=== PATIENT | female | born 1960 | race Caucasian/White ===

== ENCOUNTER 2020-04-14 20:03 | Inpatient (IN) | payer BC ==
[~2020-04-14 20:03] MED LIST: Iopamidol-370 76% 500 ML 1 ML ONE
--- NOTE | 2020-04-14 20:54 | RAD ---
EXAM: CHEST ONE VIEW HISTORY: Covid positive, hypoxia. COMPARISON: None FINDINGS: Postoperative changes related to CABG are noted. Pulmonary vasculature is within normal limits. Calci fied granulomata are seen at each lung base related to prior granulomatous disease. Linear density is seen in the left lung base which may represent mild scarring or atelectasis. Lungs are otherwise c lear. Vascular calcifications overlie the region of the subclavian and axillary vessels. Vascular calcifications are seen in the thoracic aorta. Mild degenerative changes are noted in the spine. IMPRESSION: No acute cardiopulmonary process. Chest radiographs exhibit low sensitivity for evaluation of subtle groundglass opacities which can be seen with viral bronchopneumonia.
[2020-04-14 20:55] LABS: Hemoglobin 15.6 g/dL (12.0-16.0); Mean Corpuscular HGB CONC 32.7 g/dL (32.0-36.0); Mean Corpuscular Hemoglobin 34.5 pg (27.0-31.0); Mean Platelet Volume 7.8 fL (7.4-10.4); Platelet Count 149 thou/uL (130-400); RBC Distribution Width 13.2 % (11.5-14.5); Red Blood Cell (RBC) Count 4.52 mill/uL (4.20-5.40); White Blood Cell (WBC) Count 3.2 thou/uL (4.8-10.8)
[2020-04-14 21:08] LABS: Albumin 3.7 g/dL (3.4-4.8); Anion Gap 14 mmol/L (10-20); BUN (Urea Nitrogen) 7 mg/dL (9.8-20.1); Bilirubin, Total 0.2 mg/dL (0.2-1.2); Calc. Creatinine Clearance 0 mL/min (70-130); Calcium 8.4 mg/dL (7.8-10.44); Carbon Dioxide 29 mmol/L (23-31); Chloride 98 mmol/L (98-107); Estimated GFR-MDRD 76; Glucose 102 mg/dL (80-115); Potassium 3.2 mmol/L (3.5-5.1); Protein, Total 6.5 g/dL (6.0-8.3); Sodium 138 mmol/L (136-145)
[2020-04-14 21:09] LABS: ALT (SGPT) 9 U/L (8-55); AST (SGOT) 25 U/L (5-34); Alkaline Phosphatase 123 U/L (40-110); Globulin 2.8 g/dL (2.4-3.5)
[2020-04-14 21:21] LABS: #Basophils 0.1 thou/uL (0.0-0.2); #Lymphocytes 1.2 thou/uL (1.20-3.40); #Monocytes 0.3 thou/uL (0.11-0.59); #Neutrophils 1.6 thou/uL (1.40-6.50); %Basophils 2.9 % (0.0-1.0); %Eosinophils 0.1 % (0.0-10.0); %Lymphocytes 38.3 % (21.0-51.0); %Monocytes 8.1 % (0.0-10.0); %Neutrophils 50.7 % (42.0-75.0)
[2020-04-14 21:30] LABS: CKMB 1.5 ng/mL (0-6.6)
[2020-04-14] MEDS ORDERED: Dexamethasone 10 MG/ML VIAL ONE (21:36)
[2020-04-14] MEDS ORDERED: Aspirin Chewable 81 MG TAB ONE (21:48)
--- NOTE | 2020-04-14 21:55 | PDOC.FPRHP ---
- History of Present Illness Chief Complaint: hypoxia History of Present Illness: 60 yo F with history of CABG presenting for hypoxia with outside COVID positive test yesterday and known exposure in her father who was briefly hospitalized last night. Patient is on day 3 of symptoms and reports increased fatigue, dyspnea on exertion and a chronic cough for which she has used an inhaler in the past. She denies any fever, chest pain, or decreased oral intake. Patient was found to be hypoxic at home with O2 sat 88-89%. ED Course: Received aspirin and decadron - Allergies/Adverse Reactions Allergies Allergy/AdvReac Type Severity Reaction Status Date / Time Sulfa (Sulfonamide Allergy Verified 04/14/20 23:38 Antibiotics) - Home Medications Medication Instructions Recorded Confirmed Type Atorvastatin Calcium [Lipitor] 40 mg PO DAILY 04/15/20 04/15/20 History BuPROPion XL [Wellbutrin XL] 1 tab PO DAILY 04/15/20 04/15/20 History Diazepam [Valium] 10 mg PO HS 04/15/20 04/15/20 History Gabapentin 600 mg PO TID 04/15/20 04/15/20 History Hydrocodone Bit/Acetaminophen 1 tablet PO Q6HR PRN 04/15/20 04/15/20 History [HYDROcodone Bit/Acetaminophen] Metoprolol Tartrate [Lopressor] 25 mg PO BID 04/15/20 04/15/20 History QUEtiapine Fumarate [SEROquel] 400 mg PO BID 04/15/20 04/15/20 History Ventolin HFA Inhaler 2 puff INH Q6HR PRN 04/15/20 04/15/20 History - History PMHx: CAD PSHx: CABG, back surgery FHx: Non-contributory Social: 1 PPD for 30 years, current nonsmoker, Denies alcohol or drug use - Review of Systems General: denies: fever/chills Respiratory: reports: cough. denies: shortness of breath Cardiovascular: denies: chest pain Gastrointestinal: reports: diarrhea, abdominal pain. denies: nausea, vomiting Skin: denies: rashes Musculoskeletal: denies: pain, tenderness Neurological: reports: weakness - Vital signs BP: 118/68 HR: 77 RR: 16 Tmax: 98.2 Pox: 94% on 2L Wt: 71kg - Physical Exam Constitutional: NAD HEENT: normocephalic and atraumatic, EOMI, no scleral icterus, grossly normal vision, grossly normal hearing Neck: FROM Heart: RRR, no murmurs/rubs/gallops -Lungs: wheezing bilaterally Abdomen: soft, non-tender Musculoskeletal: normal structure, ROM grossly normal Neurological: no focal deficit Skin: no jaundice Heme/Lymphatic: no unusual bruising or bleeding Psychiatric: normal mood and affect, good judgment and insight, intact recent and remote memory FMR H&P: Results - Labs Result Diagrams: 04/15/20 04:17 04/15/20 04:17 Lab results: WBC 3.2 thou/uL (4.8-10.8) L 04/14/20 20:36 Hgb 15.6 g/dL (12.0-16.0) 04/14/20 20:36 Hct 47.7 % (36.0-47.0) H 04/14/20 20:36 MCV 105.0 fL (78.0-98.0) H 04/14/20 20:36 Plt Count 149 thou/uL (130-400) 04/14/20 20:36 Neutrophils % 50.7 % (42.0-75.0) 04/14/20 20:36 Sodium 138 mmol/L (136-145) 04/14/20 20:36 Potassium 3.2 mmol/L (3.5-5.1) L 04/14/20 20:36 Chloride 98 mmol/L (98-107) 04/14/20 20:36 Carbon Dioxide 29 mmol/L (23-31) 04/14/20 20:36 BUN 7 mg/dL (9.8-20.1) L 04/14/20 20:36 Creatinine 0.77 mg/dL (0.6-1.1) 04/14/20 20:36 Glucose 102 mg/dL (80-115) 04/14/20 20:36 Lactic Acid 1.0 mmol/L (0.5-2.2) 04/14/20 20:36 Calcium 8.4 mg/dL (7.8-10.44) 04/14/20 20:36 Total Bilirubin 0.2 mg/dL (0.2-1.2) 04/14/20 20:36 AST 25 U/L (5-34) 04/14/20 20:36 ALT 9 U/L (8-55) 04/14/20 20:36 Alkaline Phosphatase 123 U/L (40-110) H 04/14/20 20:36 CK-MB (CK-2) 1.5 ng/mL (0-6.6) 04/14/20 20:36 Serum Total Protein 6.5 g/dL (6.0-8.3) 04/14/20 20:36 Albumin 3.7 g/dL (3.4-4.8) 04/14/20 20:36 - EKG Interpretation EKG: no ST elevation - Radiology Interpretation Chest x-ray Status: report reviewed by me (no acute process) FMR H&P: A/P - Plan 60 yo F with history of CABG presenting for hypoxia with outside positive COVID Acute Hypoxic Respiratory Failure 2/2 COVID pneumonia -O2 88% on presentation, improved to 95% on 2L -outside positive COVID and known exposure -Mg, Phos, D-dimer, CRP, INR, PTT, fibrinogen, ferritin, LDH pending -Urine antigens pending -BCx pending -started decadron and BID lovenox -COVID at this hospital is pending. Will start convalescent plasma and remde sivir when resulted. Elevated troponin -trop 0.05 -EKG showed no signs of ST elevation -may be related to covid but patient has history of CAD and CABG -will trend Hypokalemia -K 3.2 -replace CAD -history of CABG -Continue home meds DVT PPx: lovenox PCP: CC - out of town Code: FULL Dispo: Admit for treatment of covid pneumonia with oxygen requirement. Will treat covid and provide supportive care. Trend troponins. FMR H&P: Upper Level - Plan Date/Time: 04/14/202147 Tony Carbajal DO, have evaluated this patient and agree with findings/plan as outlined by legal summer intern resident. Pertinent changes/additions are listed here. 60 yo F w pmhx sig for CAD she has had increased malaise for 3 days, mild GALLEGOS, chronic cough. postive covid test at outside faciltiy, with known exposure. she denies fever, chest pain, or wheeze. has used an inhaler in the past and has >30py smoking hx. In the ED she had hypoxia to 88%. elevated trop, ekg neg for st changes. cxr and labs wnl. given asa and decadron. on my exam she has wheezing b/l, no obvious murmur, abd nttp, no IRWIN. covid pna with acute hypoxic resp failure, stable on 2L. continue O2 support, decadron, covid test pending, add convalescent plasma and remdesivir when positive. elevated trop 2/2 covid vs demand, continue to trend. will provid inhalers for likely dx of copd. adm to tele for monitoring. Addendum - Attending - Attending Attestation Date/Time: 04/15/20 0037 I personally evaluated the patient and discussed the management with Dr. Knight/Niall. I agree with the History, Examination, Assessment and Plan documented above with any addition or exceptions noted below. 60 yo WF PMH CAD s/p CABG. Presents with fever/chill, diarrhea, and SOB x 2-3 da ys. Tested positive for COVID 19 today at outside facility. Several family members with covid. Exam remarkble for hypoxia on RA. Admit inpatient for hypoxic respiratory distress 2/2 covid 19 PNA. Patient would like convelescant plasma so repeat COVID swab here. Consider remdesivir. Continue decadron and supplemetal O2. Inpt, tele, >2 midnights. Trend trop.
[2020-04-14] MEDS ORDERED: Acetaminophen 325 MG TAB PO PRN (22:06)
[2020-04-14] MEDS ORDERED: Acetaminophen 650 MG Suppository PR PRN (22:06)
[2020-04-14] MEDS ORDERED: Ondansetron ODT 4 MG TAB PO PRN (22:06)
[2020-04-14 22:55] LABS: PTT 29.9 sec (22.9-36.1)
[2020-04-14 23:04] LABS: CRP (Inflammatory) 2.45 mg/dL (= or < 0.5); Magnesium 1.9 mg/dL (1.6-2.6); Phosphorus 3.8 mg/dL (2.3-4.7)
[2020-04-15 00:05] LABS: Troponin I 0.046 ng/mL (< 0.028)
[2020-04-15] MEDS ORDERED: Potassium Chloride 20 MEQ TAB PO SCH (00:15)
[2020-04-15 00:24] VITALS: BMI 27.8
[2020-04-15] MEDS ORDERED: Diazepam 5 MG TAB PO SCH ×2 (02:00→21:00)
[2020-04-15 04:35] LABS: #Lymphocytes 0.5 thou/uL (1.20-3.40); #Monocytes 0.1 thou/uL (0.11-0.59); #Neutrophils 1.3 thou/uL (1.40-6.50); %Basophils 1.4 % (0.0-1.0); %Eosinophils 0.2 % (0.0-10.0); %Lymphocytes 23.8 % (21.0-51.0); %Monocytes 4.8 % (0.0-10.0); %Neutrophils 69.9 % (42.0-75.0); Hemoglobin 15.3 g/dL (12.0-16.0); Mean Corpuscular HGB CONC 32.8 g/dL (32.0-36.0); Mean Corpuscular Hemoglobin 34.9 pg (27.0-31.0); Mean Platelet Volume 7.9 fL (7.4-10.4); Platelet Count 145 thou/uL (130-400); RBC Distribution Width 13.1 % (11.5-14.5); Red Blood Cell (RBC) Count 4.38 mill/uL (4.20-5.40); White Blood Cell (WBC) Count 1.9 thou/uL (4.8-10.8)
[2020-04-15 04:54] LABS: Anion Gap 12 mmol/L (10-20); BUN (Urea Nitrogen) 8 mg/dL (9.8-20.1); CRP (Inflammatory) 2.42 mg/dL (= or < 0.5); Calc. Creatinine Clearance 92 mL/min (70-130); Calcium 8.4 mg/dL (7.8-10.44); Carbon Dioxide 32 mmol/L (23-31); Chloride 98 mmol/L (98-107); Estimated GFR-MDRD 82; Glucose 123 mg/dL (80-115); Magnesium 2.2 mg/dL (1.6-2.6); Sodium 138 mmol/L (136-145)
[2020-04-15 04:56] LABS: Troponin I 0.046 ng/mL (< 0.028)
[2020-04-15 05:03] LABS: Legionella Urinary Ag Negative (Negative); Strep pneumo Urine Ag NEGATIVE (NEGATIVE)
--- NOTE | 2020-04-15 05:46 | PDOC.FM ---
- Subjective Subjective: Patient doing okay this morning. Reports she has had diarrhea daily since 04/12. Endorses frequent episodes of sweating intermittently with chills. Her father was recently admitted to our team and discharged yesterday. She states that her bean weigher is out of town but she has an appt kwaku for f/u soon. - Objective Vital Signs & Weight: Vital Signs (12 hours) Temp Pulse Resp BP Pulse Ox 04/15/20 05:09 93 L 04/15/20 04:28 97.7 F 75 20 111/78 93 L 04/15/20 00:23 97.9 F 70 20 107/64 94 L Weight Weight 71.169 kg I&O: 04/13/20 04/14/20 04/15/20 06:59 06:59 06:59 Intake Total 240 Output Total 300 Balance -60 Result Diagrams: 04/15/20 04:17 04/15/20 04:17 Phys Exam - Physical Examination Constitutional: NAD HEENT: moist MMs, sclera anicteric Neck: supple, full ROM Respiratory: no wheezing, clear to auscultation bilateral Cardiovascular: RRR, no significant murmur Gastrointestinal: soft, positive bowel sounds Musculoskeletal: no edema, pulses present Neurological: non-focal, moves all 4 limbs Psychiatric: normal affect Skin: no rash Dx/Plan (1) Pneumonia due to COVID-19 virus Code(s): U07.1 - COVID-19; J12.89 - OTHER VIRAL PNEUMONIA Status: Acute (2) Acute respiratory failure with hypoxia Code(s): J96.01 - ACUTE RESPIRATORY FAILURE WITH HYPOXIA Status: Acute (3) Elevated troponin Code(s): R77.8 - OTHER SPECIFIED ABNORMALITIES OF PLASMA PROTEINS Status: Acute - Plan Plan: 60 yo F with history of CABG presenting for hypoxia with outside positive COVID #Acute Hypoxic Respiratory Failure 2/2 COVID pneumonia -O2 88% on presentation, improved to 95% on 2L; has been satting well on 2L overnight -outside positive COVID and known exposure, repeat pending; symptoms since approx 04/12 -COVID labs positive -Urine antigens negative -BCx pending -continue decadron and BID lovenox -Start convalescent plasma and possibly remdesivir when COVID test resulted. #Elevated troponin -trop 0.05>0.0.46>0.046 -EKG showed no signs of ST elevation -may be related to covid but patient has history of CAD and CABG -patient denies any chest pain #Hypokalemia, resolved -K 3.2>4.0 #CAD -history of CABG -Continue home meds DVT PPx: lovenox PCP: CC - out of town Code: FULL Dispo: Admitted for treatment of covid pneumonia with oxygen requirement. Continue respiratory support Addendum - Attending - Attending Attestation Date/Time: 04/15/20 [id number] I personally evaluated the patient and discussed the management with Dr. Ceron I agree with the History, Examination, Assessment and Plan documented above with any addition or exceptions noted below - Patient feeling better. Afebrile VSS. A/P: 1) COVID pneumonia- mild O2 requirement; wean as tolerated. Will plan to give plasma and consider remdesivir. Continue decadron. Inflammatory markers mildly elevated. Possible d/c today or tomorrow.
--- NOTE | 2020-04-15 08:18 | CT ---
PRELIMINARY REPORT/[facility]/EMERGENCY AFTER HOURS PROCEDURE: EXAM: CTA Chest with Intravenous Contrast CLINICAL HISTORY: F60, COVID POSTIVE, ELEVATED D-DIMER. EVAL FOR PE. TECHNIQUE: Axial CTA images of the chest with intravenous contrast. Three-dimensional MIP/volume rend ered reformations were performed. CONTRAST: With; ISOVUE 370,100mL COMPARISON: None provided. FINDINGS: PULMONARY ARTERIES There is no intraluminal filling defect suspicious for PE. AORTA No thoracic aortic aneurysm or dissection. LUNGS Emphysema with basilar predominant interstitial opacities. Subpleural opacities in the inferior aspe ct of the right upper lobe and right lower lobe. No pulmonary mass. No focal airspace consolidation. PLEURAL SPACES No pleural effusion. No pneumothorax. HEART AND MEDIASTINUM No cardiomegaly. No significant pericardial effusion. Coronary artery atherosclerotic disease to inc lude the aorta and peripheral branching vessels. Post CABG changes. LYMPH NODES No lymphadenopathy. BONES No focal osseous abnormality or acute fracture. Compression deformity of L1 vertebral body. Moderat e multilevel degenerative changes CHEST WALL AND UPPER ABDOMEN Images through the upper abdomen are unremarkable. The chest wall is unremarkable. IMPRESSION: 1. No acute pulmonary thromboembolism. 2. Subpleural groundglass opacities in the inferior aspect of the right upper lobe and right lower l obe may represent atelectasis or developing infection. 3. Post CABG changes. Suggestion of mild pulmonary interstitial edema. ELECTRONICALLY SIGNED BY: Alexandru Pérez DO Apr 15, 2020 12:29:41 AM ALIGNMENT MECHANIC This report is intended for review by the ordering physician only, in accordance of law. If you recei ve this report in error, please call [facility] at [phone]. FINAL REPORT CT ANGIO OF CHEST PERFORMED WITH IV CONTRAST ENHANCEMENT WITH 3D RECONSTRUCTIONS: HISTORY: COVID-positive. Elevated D-Dimer. Shortness of breath. FINDINGS: Lungs show changes of severe centrilobular emphysema in the upper lobes. Within the lung bases, there are subpleural reticular and some subtle ground-glass change. Appearance is more suggestive of atele ctasis not typical for COVID pneumonia. No pleural effusion. No significant mediastinal or hilar lymphadenopathy. No significant axillary adenopathy. Thoracic aor ta is normal in caliber. There is good pulmonary artery opacification. No CT evidence for pulmonary embolus. Visualized liver parenchyma shows no focal findings. IMPRESSION: 1. No CT evidence for pulmonary embolus. 2. Emphysematous lung changes with bibasilar more interstitial changes suggesting atelectasis or sca rring, less likely pneumonia. Report in agreement with the preliminary report issued by [facility]. POS: DANIEL
[2020-04-15] MEDS: Atorvastatin Calcium 40 MG TAB PO SCH (08:32)
[2020-04-15] MEDS: Bupropion 150 MG XL TAB PO SCH (08:32)
[2020-04-15] MEDS: Metoprolol Tartrate 25 MG TAB PO SCH ×2 (08:33→20:41)
[2020-04-15] MEDS: Enoxaparin Sodium 40 MG/0.4 ML SYRINGE SC SCH ×2 (08:33→20:41)
[2020-04-15] MEDS: Dexamethasone 4 mg/ml Vial SLOW IVP SCH (08:33)
[2020-04-15] MEDS: Albuterol 200 PUFF (6.7GM INHALER) INH SCH ×3 (08:34→20:41)
[2020-04-15] MEDS ORDERED: Gabapentin 300 MG CAP PO SCH (09:00)
[2020-04-15] MEDS ORDERED: Dexamethasone 4 mg/ml Vial SLOW IVP SCH (09:00)
[2020-04-15] MEDS: Ondansetron PF 4 MG/2 ML Vial IVP PRN ×2 (10:24→20:59)
[2020-04-15] MEDS: HYDROcodone/Acetaminophen 10/325 mg Tablet PO PRN ×2 (11:57→17:35)
[2020-04-15] MEDS: Gabapentin 300 MG CAP PO SCH ×2 (15:26→20:40)
[2020-04-15 15:36] LABS: SARS-CoV-2 MS2 Positive; SARS-CoV-2 N Gene Positive; SARS-CoV-2 S Gene Positive; SARS-CoV-2 by NAA DETECTED (NotDetected); SARS-CoV-2 orf1ab Positive
[2020-04-15] MEDS ORDERED: REMDESIVIR (EUA) 200 MG in Sodium Chloride 0.9% 250 ML 210 ML IV SCH (17:15)
[2020-04-15] MEDS: Famotidine 20 MG TAB PO SCH (20:40)
[2020-04-16] MEDS: Albuterol 200 PUFF (6.7GM INHALER) INH SCH ×3 (02:44→12:05)
[2020-04-16 05:18] LABS: ALT (SGPT) 11 U/L (8-55); AST (SGOT) 22 U/L (5-34); Albumin 3.3 g/dL (3.4-4.8); Alkaline Phosphatase 90 U/L (40-110); Bilirubin, Direct 0.1 mg/dL (0.1-0.3); Bilirubin, Total 0.2 mg/dL (0.2-1.2)
[2020-04-16] MEDS: Dexamethasone 4 mg/ml Vial SLOW IVP SCH (07:45)
[2020-04-16] MEDS: Enoxaparin Sodium 40 MG/0.4 ML SYRINGE SC SCH (07:45)
[2020-04-16] MEDS: Gabapentin 300 MG CAP PO SCH ×2 (07:45→15:22)
[2020-04-16] MEDS: Metoprolol Tartrate 25 MG TAB PO SCH (07:46)
[2020-04-16] MEDS: Atorvastatin Calcium 40 MG TAB PO SCH (07:46)
[2020-04-16] MEDS: Famotidine 20 MG TAB PO SCH (07:46)
[2020-04-16] MEDS: Bupropion 150 MG XL TAB PO SCH (07:46)
[2020-04-16] MEDS: HYDROcodone/Acetaminophen 10/325 mg Tablet PO PRN ×2 (08:05→15:22)
--- NOTE | 2020-04-16 08:54 | PDOC.FM ---
- Subjective Subjective: Patient's breathing feels back to baseline at resting. On room air. Ready to go home due to social circumstances-needs to get back to [place] - Objective MAR Reviewed: Yes Vital Signs & Weight: Vital Signs (12 hours) Temp Pulse Resp BP Pulse Ox 04/16/20 07:55 98.4 F 74 20 102/62 95 04/16/20 04:05 97.9 F 71 18 95/66 100 Weight Weight 69.717 kg I&O: 04/15/20 04/16/20 04/17/20 06:59 06:59 06:59 Intake Total 240 358 Output Total 300 Balance -60 358 Result Diagrams: 04/15/20 04:17 04/15/20 04:17 Phys Exam - Physical Examination Constitutional: NAD HEENT: PERRLA, moist MMs Respiratory: no wheezing, clear to auscultation bilateral Cardiovascular: RRR, no significant murmur Gastrointestinal: non-tender Musculoskeletal: no edema, pulses present, edema present Neurological: moves all 4 limbs anxious affect Dx/Plan - Plan Plan: 60 yo F with history of CABG presenting for hypoxia with outside positive COVID #Acute Hypoxic Respiratory Failure 2/2 COVID pneumonia -COVID +, s/p convalescent plasma, declined remdesivir -Urine antigens negative -BCx pending -Resting comfortably on room air, if can tolerate walking test, home today -continue decadron and BID lovenox #Elevated troponin -trop 0.05>0.0.46>0.046 -EKG showed no signs of ST elevation -may be related to covid but patient has history of CAD and CABG -patient denies any chest pain #Hypokalemia, resolved -K 3.2>4.0 #CAD -history of CABG -Continue home meds DVT PPx: lovenox PCP: CC - out of town Code: FULL Dispo: Likely home today Addendum - Attending - Attending Attestation Date/Time: 04/16/20 0241 I personally evaluated the patient and discussed the management with Dr. Llanes I agree with the History, Examination, Assessment and Plan documented above with any addition or exceptions noted below - Patient without complaints. Feeling better; denies any SOB. Afebrile VSS. A/P: 1) COVID pneumonia - weaned off O2 and appears to be maintaining O2. Will continue to monitor and plan to d/c home if remains stable.
[2020-04-16 17:05] VITALS: BP 108/67; TEMP 98
[2020-04-16] MEDS ORDERED: REMDESIVIR (EUA) 100 MG in Sodium Chloride 0.9% 250 ML 230 ML IV SCH (18:00)
--- NOTE | 2020-04-18 08:42 | DIS ---
DATE OF ADMISSION: 04/15/2020 DATE OF DISCHARGE: 04/16/2020 CONSULTS: None. PROCEDURES AND IMAGING: Chest CTA negative for PE. Emphysematous lung changes with bibasilar interstitial changes suggesting atelectasis or scarring. PRIMARY DIAGNOSIS: Acute hypoxic respiratory failure secondary to COVID pneumonia. SECONDARY DIAGNOSES: 1. Elevated troponin, acute coronary syndrome ruled out. 2. Hypokalemia, resolved. 3. History of coronary artery disease with history of coronary artery bypass grafting. DISCHARGE MEDICATIONS: New medications, 1. Aspirin 325 mg p.o. daily. 2. Prednisone 40 mg q.a.m. x5 tabs. 3. Proventil HFA 2 puffs inhaled q.4 hours p.r.n. for short of breath or wheezing. Resumed home medications, 1. Ventolin HFA inhaler 2 puffs inhaled q.6 hours p.r.n. 2. Cambria 10/325 one tab p.o. q.6 hours p.r.n. for pain. 3. Gabapentin 1200 mg p.o. t.i.d. 4. Seroquel 400 mg p.o. b.i.d. 5. Metoprolol tartrate 25 mg p.o. b.i.d. 6. Atorvastatin 40 mg p.o. b.i.d. 7. Valium 10 mg p.o. at bedtime. 8. Wellbutrin XL 1 tab p.o. daily, 150 mg tab. Discontinued medications, none. HISTORY OF PRESENT ILLNESS AND HOSPITAL COURSE: Ms. Sumner is a 60-year-old female who came to the ER short of breath after being tested COVID positive 2 days ago. She was started on 2 L of nasal cannula and admitted for acute hypoxic respiratory failure secondary to COVID pneumonia. The patient received convalescent plasma and steroids. She declined Remdesivir because she did not want to be hospitalized for a prolonged period. She rapidly improved and was successfully weaned to room air. However, she did not pass her O2 walking test and so after discussion with the patient, she opted to go home with oxygen and agreed to wear it with any type of exertion. She plans to stay in town and follow up at [facility]. She will be sent home with albuterol inhaler to use as needed in addition to a short course of steroid. DISPOSITION: Stable. DISCHARGE INSTRUCTIONS: 1. Location: Home. 2. Diet: Heart healthy. 3. Activity: Ad dafne as tolerated, please use oxygen with ambulation. 4. Followup: Follow up at [facility] in 1 to 2 days. Please continue steroid course as instructed. Please continue to wear oxygen as discussed. Return precautions reviewed. Job ID: [id number]
--- NOTE | 2020-04-30 18:04 | EKG ---
Test Reason : Blood Pressure : / mmHG Vent. Rate : 079 BPM Atrial Rate : 079 BPM P-R Int : 122 ms QRS Dur : 092 ms QT Int : 420 ms P-R-T Axes : 021 060 043 degrees QTc Int : 481 ms Normal sinus rhythm Possible Left atrial enlargement Septal infarct , age undetermined Abnormal ECG Confirmed by NINFA MCKEON, ОЛЕГ ([id number]), associate entertainment editor NEO MARTINEZ ([id number]) on 04/30/2020 6:03:51 PM Referred By: Confirmed By:ОЛЕГ OCASIO MD
== END 2020-04-16 17:45 | disposition home or self-care (01) | DRG 177 ==
LOC: ERS 20:03 → 2SW 21:48 → OBSVTOIN 04-15 00:34
PROVIDERS: ADMIT Family Medicine; ATTEND Family Medicine
PROC: XW13325 Transfusion of Convalescent Plasma (Nonautologous) into Peripheral Vein, Percutaneous Approach, New Technology Group 5 (ICD-10-PCS; principal; 2020-04-15)
DX: U07.1 COVID-19 (principal); J96.01 Acute respiratory failure with hypoxia; J12.89 Other viral pneumonia; E87.6 Hypokalemia; I25.10 Atherosclerotic heart disease of native coronary artery without angina pectoris; E78.5 Hyperlipidemia, unspecified; R77.8 Other specified abnormalities of plasma proteins; Z79.899 Other long term (current) drug therapy; Z88.2 Allergy status to sulfonamides; Z95.1 Presence of aortocoronary bypass graft; Z87.891 Personal history of nicotine dependence
CPT/HCPCS: 36415; 36430; 71045; 71275; 80048; 80053; 80076; 82553; 82728; 83605; 83615; 83735; 84100; 84484; 85025; 85379; 85384; 85610; 85730; 86140; 86850; 86900; 86901; 87040; 87449; 87635; 87899; 93005; 96374; G0378; J1100; J1650; J2405; P9017; Q0162; Q9967; U0003